=== PATIENT | female | born 1975 | race Caucasian/White ===

== ENCOUNTER 2019-10-24 08:05 | Outpatient (CLI) | payer OTHER, SELFPAY ==
--- NOTE | 2019-10-24 08:15 | US_ITS ---
WS: [id number] ULTRASOUND ABDOMEN CLINICAL INFORMATION: ABD PAIN, RLQ COMPARISON: None. FINDINGS: Liver Size: Normal. Craniocaudal length: 13.4 cm. Echogenicity: Normal. Surface nodularity: None. Mass (size and location): None. Bile ducts Intrahepatic ducts: Normal. Common bile duct diameter: 0.5 cm. Gallbladder Normal. Gallstones: None. Gallbladder sludge: None. Gallbladder wall thickening: None. Pericholecystic fluid: None. Sonographic Stringer sign: Absent. Pancreas Normal as visualized. Spleen Splenomegaly: None. Craniocaudal length: 9.4 cm. Right kidney: Normal. Hydronephrosis: None. Size: 10.5 cm x 5.6 cm x 6.3 cm Left kidney: Normal. Hydronephrosis: None. Size: 11.7 cm x 5.6 cm x 5.9 cm. Abdominal aorta and IVC Visualized portions are normal. Ascites: None. US/US abdomen complete* [id number] IMPRESSION: Normal abdominal ultrasound
== END 2019-10-24 08:06 | disposition home or self-care (01) ==
LOC: RAD 08:12
PROVIDERS: PCP Family Medicine; Visit Provider Family Medicine
DX: R10.31 Right lower quadrant pain (principal); R10.11 Right upper quadrant pain
CPT/HCPCS: 76700

== ENCOUNTER 2023-01-25 11:55 | Outpatient (CLI) | payer OTHER, SELFPAY ==
--- NOTE | 2023-01-25 12:03 | XR_ITS ---
WS: [id number] Exam: XR hip RT 2-3V wo/w pel* [id number] Date/Time of Exam: 01/25/2023 12:16 PM Reason For Exam: LOW BACK PAIN Findings: No fractures or bone anomalies are noted. No unusual soft tissue masses or calcifications are seen. The bony elements of the hip are in adequate alignment. IMPRESSION: Negative RIGHT hip. Tonnis classification: grade 0: normal radiographs
--- NOTE | 2023-01-25 12:03 | XR_ITS ---
WS: [id number] Exam: XR lumbar spine min 4V [id number] Date/Time of Exam: 01/25/2023 12:16 PM Reason For Exam: LOW BACK PAIN No fracture or dislocation. Degenerative vacuum disc at L5-S1. Slight spondylosis. Facet DJD at L4-5 and L5-S1. Posterior elements are otherwise intact. Remaining intervertebral discs are preserved. IMPRESSION1. No fracture or malalignment. 2. Degenerative changes of the lower lumbar spine with degenerative L5-S1 disc.
== END 2023-01-25 11:56 | disposition home or self-care (01) ==
PROVIDERS: PCP Family Medicine; Visit Provider Chiropractor
DX: M47.896 Other spondylosis, lumbar region (principal); M54.50 Low back pain, unspecified
CPT/HCPCS: 72110; 73502